=== PATIENT | female | born 2000 ===

== ENCOUNTER 2020-03-06 13:10 | Outpatient (REF) | payer OTHER, SELFPAY | END 2020-03-06 13:11 | disposition home or self-care (01) | LOC: HO.LNP 13:10 | PROVIDERS: Visit Provider Hospitalist | DX: Z20.822 Contact with and (suspected) exposure to COVID-19 (principal) | CPT/HCPCS: U0003 ==

== ENCOUNTER 2020-05-14 15:24 | Outpatient (REF) | payer OTHER, SELFPAY | END 2020-05-14 15:25 | disposition home or self-care (01) | LOC: HO.LAB 15:24 | PROVIDERS: Visit Provider Internal Medicine | DX: Z20.822 Contact with and (suspected) exposure to COVID-19 (principal) | CPT/HCPCS: 36415; C9803; U0003; U0005 ==